=== PATIENT | female | born 1980 | race Caucasian/White ===

== ENCOUNTER 2018-02-11 11:39 | Inpatient (IN) ==
[2018-02-11] MEDS ORDERED: Famotidine 20 MG/2 ML VIAL IVP PRN (12:25)
[2018-02-11] MEDS ORDERED: *HR* Nalbuphine 10 MG/ML AMPUL IVP PRN (12:25)
[2018-02-11] MEDS ORDERED: Ondansetron 4 MG/2 ML VIAL IVP PRN (12:25)
[2018-02-11] MEDS ORDERED: Metoclopramide 10 MG/2 ML VIAL IVP PRN (12:25)
[2018-02-11] MEDS ORDERED: Ringers Solution, Lactated 1,000 ML IVC SCH (12:30)
--- NOTE | 2018-02-11 12:47 | OB/GYN History & Physical ---
Date of Encounter: 02/11/18 Time of Encounter: 12:44 Assessment and Plan (1) 38 weeks gestation of Current visit: Yes Status: Acute (2) Encounter for induction of labor Current visit: Yes Status: Acute (3) hydronephrosis in , antepartum, single gestation Current visit: Yes Status: Acute History of Present Illness Chief complaint: induction HPI: Ms. Hardin is a 37 year old female who presents today for induction of labor at 38 weeks. This patient has been seen by maternal- medicine who concurs delivery at 38 weeks due to right-sided hydronephrosis and baby. Hydronephrosis at upper limits of normal. Patient has had uneventful . She continues to have itching. Bile last 7 drawn multiple visits including by maternal- medicine all labs within normal limits. She denies issues with her breasts. There is no gynecologic infection or discharge. She is having no bleeding. There are no issues with her bowels or bladder. She has allergies to Biaxin, amoxicillin, penicillin, Zithromax, Flexeril and prednisone all resulting in rash. Current medications include vitamins. She has no chronic medical conditions. Surgical history is significant for LEEP procedure and wisdom teeth extraction. She has no history of abnormal Pap smears, STDs or pelvic infections. She has no history of abnormal breast findings. Socially she denies tobacco, alcohol, illicit drug use. Obstetric history significant for 2 term vaginal deliveries, located. Family history significant for heart disease, hypertension , prostate issues and bone cancer. Past Med Surg Social Fam HX - Past Medical History Medical history: no medical history Additional medical history: had baby 10 days ago, breast feeding Psychiatric history: no psych history - Past Surgical History Additional surgical history: wisom teeth - Social History Smoking Status: Never smoker Smokeless Tobacco Status: No Alcohol use: none Drug use: none - Family History Mother Living Status: Hx Family Cancer: Yes (bladder) Obstetrical History - Pregnancies : 3 Para: 2 Livin Medications and Allergies Vitamins 1 tab PO DAILY 09/20/16 [History] 3 Allergy/AdvReac Type Severity Reaction Status Date / Time clarithromycin [From Biaxin] Allergy Diarrhea Verified 02/11/18 12:22 clindamycin Allergy Anaphylaxis Verified 02/11/18 12:22 Cyclobenzaprine Allergy Hives Verified 02/11/18 12:22 [From Flexeril] Penicillins [PCN] Allergy Hives Verified 02/11/18 12:22 fexofenadine [From Ginette-D] AdvReac Shakiness Verified 02/11/18 12:22 ibuprofen AdvReac Nausea Verified 02/11/18 12:22 pseudoephedrine AdvReac Shakiness Verified 02/11/18 12:22 [From Ginette-D] Review of System OB All systems PM: reviewed and no additional remarkable complaints except as stated Exam - Constitutional Constitutional: well developed, well nourished, no acute distress, average body habitus - HEENT HEENT: PERRL - Neck Neck exam: full ROM - Lungs Respiratory exam: CTAB - Cardiovascular Cardiovascular exam: RRR - Abdomen Abdomen: Present: bowel sounds normal, gravid, non tender - Extremities Extremities exam: full ROM, normal inspection - Vagina Vagina: Present: normal moisture - Cervix Dilation: 2 Effacement: 50 Station: -2 - Uterus Uterus exam: Present: normal size Results All other labs normal. - VTE Reasons for not Prescribing Prophylaxis: Treatment not Indicated - Low risk for VTE
[2018-02-11] MEDS ORDERED: Ringers Solution, Lactated 1,000 ML ONE (12:48)
[2018-02-11] MEDS ORDERED: Oxytocin 20 units/ LR 1000 mL 20 UNIT/1,000 ML BAG IVC ONE (12:48)
[2018-02-11 12:56] LABS: Basophils % 0.3 %; Eosinophils # 0.1 K/mcL (0.0-0.6); Eosinophils % 1.1 %; Hematocrit 37.5 % (35.3-44.9); Hemoglobin 12.5 g/dL (11.5-15.4); Immature Granulocytes % 0.8 % (0-4); Lymphocytes # 2.5 K/mcL (0.6-4.6); Lymphocytes % 21.7 %; Mean Corpuscular HGB Conc 33.3 g/dL (31.6-35.5); Mean Corpuscular Volume 93.1 fL (83.0-100.0); Mean Platelet Volume 10.9 fL (9.4-12.4); Monocytes # 0.9 K/mcL (0.0-1.3); Monocytes % 7.8 %; Neutrophils # 7.9 K/mcL (1.6-8.9); Platelet Count 259 K/mcL (140-400); Red Blood Count 4.03 M/mcL (3.82-4.97); Red Cell Distribution Width 12.7 % (11.5-14.5); Segmented Neutrophils % 68.3 %
[2018-02-11] MEDS ORDERED: Oxytocin 20 units/ LR 1000 mL 20 UNIT/1,000 ML BAG IVC SCH ×2 (13:00→22:39)
[2018-02-11 13:20] LABS: Amphetamine Screen,Urine Negative ng/mL (Cutoff=1000); Barbiturate Screen,Urine Negative ng/mL (Cutoff=200); Benzodiazepines Screen,Urine Negative ng/mL (Cutoff=200); Cannabinoid Screen,Urine Negative ng/mL (Cutoff = 50); Cocaine Screen,Urine Negative ng/mL (Cutoff= 300); Opiate Screen,Urine Negative ng/mL (Cutoff=300); Phencyclidine Screen,Urine Negative ng/mL (Cutoff=25)
--- NOTE | 2018-02-11 14:49 | Anesthesia Evaluation PreOp ---
Date of Encounter: 02/11/18 Time of Encounter: 13:05 - Past History Planned Operation: labor epidural Cardiac History: Denies any Significant Hx Pulmonary History: Denies Any Significant HX PULLEY WORKER History: Denies Any Significant HX Other Medical History: Denies Any Significant HX Anesthesia History: No Prior Anesthetic Complications, Past Anesthesia (wisdom teeth extracted without problems. Previous epidural X2 without problems. No FHAP.) : Yes Alcohol Use: none Drug use: none Medications and Allergies Vitamins 1 tab PO DAILY 09/20/16 [History] 3 Allergy/AdvReac Type Severity Reaction Status Date / Time clarithromycin [From Biaxin] Allergy Diarrhea Verified 02/11/18 12:22 clindamycin Allergy Anaphylaxis Verified 02/11/18 12:22 Cyclobenzaprine Allergy Hives Verified 02/11/18 12:22 [From Flexeril] Penicillins [PCN] Allergy Hives Verified 02/11/18 12:22 fexofenadine [From Ginette-D] AdvReac Shakiness Verified 02/11/18 12:22 ibuprofen AdvReac Nausea Verified 02/11/18 12:22 pseudoephedrine AdvReac Shakiness Verified 02/11/18 12:22 [From Ginette-D] - Meds/Allergy Pre-op Review Medications Reviewed: Yes Allergies Reviewed: Yes Beta Blockers on Current Med List: No Anesthesia Results - Labs 02/11/18 12:36 Anesthesia Exam 118/68, 87, 16. FHTs 150s. Height: 5'5" Weight: 75kg NPO (# of Hours): 2 Pain Scale: 0 Pain Scale Used: Numeric (1 - 10) - HEENT Pupil (Motor): Pupils equal Mallampati: II Teeth: Normal Oral Opening: Greater than 3 - PULLEY WORKER LOC: Oriented PULLEY WORKER Motor: Normal RUE, Normal LUE, Normal RLE, Normal LLE, Normal Face PULLEY WORKER Sensory: Normal: RUE, LUE, RLE, LLE, Face - Cardiac Rhythm: Regular - Pulmonary Breath Sounds: bilateral Clear Respiratory Effort: Symmetrical Anesthesia Assess/Plan ASA Score: 2 Modified [place] Scale for Level of Consciousness: Cooperative, oriented, and tranquil Anesthetic Plan: Regional Monitoring Plan: Standard Monitors
[2018-02-11] MEDS ORDERED: Lidocaine -MPF 2% 5 ML VIAL ONE (16:01)
[2018-02-11] MEDS ORDERED: *HR* FentaNYL (PF) 100 MCG/2 ML VIAL ONE (16:01)
[2018-02-11] MEDS ORDERED: Bupivacaine-MPF 0.25% 10 ML VIAL ONE (16:01)
[2018-02-11] MEDS ORDERED: Epidural Premix (fent/bupiv) 110 ML EP ONE (16:02)
[2018-02-11] MEDS ORDERED: Water for inj. (sterile) 10 ML IV ONE (16:54)
[2018-02-11] MEDS ORDERED: EPHEDrine 50 MG/ML VIAL ONE (16:54)
[2018-02-11] MEDS ORDERED: *HR* FentaNYL (PF) 100 MCG/2 ML VIAL EP ONE (17:11)
[2018-02-11] MEDS ORDERED: Bupivacaine-MPF 0.25% 10 ML VIAL EP ONE (17:11)
[2018-02-11] MEDS ORDERED: Epidural Premix (fent/bupiv) 110 ML EP SCH (17:15)
--- NOTE | 2018-02-11 17:31 | OB/GYN Progress Note ---
Date of Encounter: 02/11/18 Time of Encounter: 17:28 - Assessment and Plan (1) 38 weeks gestation of Current Visit: Yes Status: Acute (2) Encounter for induction of labor Current Visit: Yes Status: Acute (3) hydronephrosis in , antepartum, single gestation Current Visit: Yes Status: Acute Continue expectant management 38 week intrauterine . hydronephrosis of . Baltazar out. Artificial rupture membranes was performed with clear fluid returned. Continue Pitocin. Subjective - Subjective Principal diagnosis: labor eval Interval history: 37-year-old female scheduled for induction of labor at 38 weeks per maternal medicine. Patient had 60 mL Baltazar catheter placed at 1250. Baltazar came out after 2 hours. Patient has been laboring on Pitocin. Sterile vaginal exam was 5 cm 50% effaced and -1 station. Artificial rupture membranes was performed with clear fluid being noted. heart rate in the 150s with accelerations, category 1 tracing. Antepartum ROS: movement normal Objective - Vital Signs Vital Signs: Intake and Output 02/11/18 02/11/18 02/11/18 07:59 15:59 23:59 Other: Weight 75.5 kg Patient Weight 02/11/18 23:59 Weight 75.5 kg - Exam FHR: category 1 Abdomen: Present: normal appearance, soft, gravid Uterus: Present: normal Cervical dilation: 4-5 Cervix effacement: 50% station: -1 - Labs Labs: Abnormal lab results WBC 11.5 K/mcL (4.3-11.1) H 02/11/18 12:36
[2018-02-11] MEDS ORDERED: Famotidine 20 MG/2 ML VIAL IVP ONE (18:22)
--- NOTE | 2018-02-11 19:01 | Anesthesia Procedures ---
Date of Encounter: 02/11/18 Time of Encounter: 16:03 Procedures: Anesthesia - Epidural/Spinal Patient ID/Chart reviewed: Yes Patient examined: Yes OB Eval: Gestational age: 39 OB Eval: : 3 OB Eval: Hx Para: 2 OB Eval: Dilated at (cm): 5 OB Eval: Contractions: Non-stressed pattern Consent Obtained: Yes Supplemental Oxygen: None/Room Air Site Prep: Aseptic Technique, Sterile prep and drape, Povidone-Iodine 1% Patient position: upright Local Anesthetic: Lidocaine 1% Amount of Local Anesthetic used: 3 Touhy Needle Gauge: 18 Touhy Needle Depth (cm): 6 Catheter Depth at Skin (cm): 15 Test Dose (1.5% Lido + Epi): Volume given (mls): 3 Test Dose Result: Negative Loading Dose: 0.25% Marcaine (mls): 8 Loading Dose: Fentanyl (mcg): 100 Loading Dose Administered: Thru Catheter Infusion Med: 0.125% Bupivacaine w/ 2 mcg/ml Fentanyl Infusion Rate (mls/hr): [address]: Tegaderm, Tape Interspace Used: L3-L4 Loss of Resistance (CONNOR): Yes Blood: No CSF: No Paresthesia: No Vitals + FHT's: 3 Vital Signs Time 1603 1621 1625 1630 1635 BP 114/63 138/66 107/67 113/57 117/77 Pulse 70 68 85 82 89 FHTs 130 130 130 130 130
--- NOTE | 2018-02-11 19:04 | Anesthesia Progress Note ---
Date of Encounter: 02/11/18 Time of Encounter: 16:45 Anesthesia Note - Note Note: 02/11/18 19:02 called to LDR9 for hypotension after epidural placement. BP 81/43. HR 77. FHTs 130s and 140s. Gave phenylephrine 50mcg X3 doses with BP increasing to 98/54. Gave ephedrine 10mg with BP increasing to 117/64. FHTs remained 130s and 140s.
--- NOTE | 2018-02-11 20:18 | OB/GYN Procedure Note ---
Delivery - Delivery Date: 02/11/18 Provider: Hermes Simon Intrapartum events: none Delivery induction: oxytocin, dumont Delivery augmentation: rupture of membranes Delivery monitor: external FHT, external uterine Anesthesia: epidural Quantitated Blood Loss: 100 - Infant (s) Infant A Delivery Date: 02/11/18 Delivery Time: 20:05 Presentation: vertex Position: OA Route of delivery: Gender: Male Viability: Viable Pounds: 6 Ounces: 3 Weight Gram: 2.805 kg at 1 minute: 9 at 5 mins: 9 Shoulder Dystocia: not encountered Specimens collected: cord blood Placenta: spontaneous - Repair Episiotomy: none Laceration Description: None - Complications Delivery complications: none - Disposition Mom disposition: stable in LDR disposition: stable in LDR - Comments Comments: Patient progressed to complete and pushing rapidly. She had a spontaneous vaginal delivery of a male over an intact perineum. This ends the perineum with 2 pushes. The rest the was then delivered with 1 push. Infant cried immediately upon delivery. Cord was cut to cut after 60 seconds. The was in past nurse in attendance. Cord bloods obtained. Placenta was then delivered spontaneously and intact. There are no cervical, vaginal, periurethral or perineal lacerations noted. Patient ordered a male infant with Apgars 9 at 1 minute 9 at 5 minutes weight is pending as mother is skin to skin.
[2018-02-11] MEDS ORDERED: Ibuprofen 600 MG TABLET PO PRN (22:39)
[2018-02-11] MEDS ORDERED: Acetaminophen 325 MG TABLET PO PRN (22:39)
[2018-02-11] MEDS ORDERED: Measles/Mumps/Rubella Vacc 0.5 ML VIAL SQ PRN (22:39)
[2018-02-12 02:20] LABS: Basophils % 0.2 %; Eosinophils # 0.2 K/mcL (0.0-0.6); Eosinophils % 0.9 %; Hematocrit 31.6 % (35.3-44.9); Immature Granulocytes % 0.6 % (0-4); Lymphocytes # 2.3 K/mcL (0.6-4.6); Lymphocytes % 13.2 %; Mean Corpuscular HGB Conc 34.2 g/dL (31.6-35.5); Mean Corpuscular Volume 90.8 fL (83.0-100.0); Mean Platelet Volume 10.6 fL (9.4-12.4); Monocytes # 1.5 K/mcL (0.0-1.3); Monocytes % 8.8 %; Platelet Count 193 K/mcL (140-400); Red Blood Count 3.48 M/mcL (3.82-4.97); Red Cell Distribution Width 12.6 % (11.5-14.5); Segmented Neutrophils % 76.3 %
[2018-02-12 02:25] LABS: Hemoglobin 10.8 g/dL (11.5-15.4)
--- NOTE | 2018-02-12 08:34 | OB/GYN Progress Note ---
Date of Encounter: 02/12/18 Time of Encounter: 08:34 - Assessment and Plan (1) Vaginal delivery Current Visit: Yes Status: Acute Continue current management plan. Anticipate discharge tomorrow. Subjective - Subjective Principal diagnosis: Vaginal delivery Interval history: Patient states she is doing well. Reports no bowel movement, but states she has passed gas. Reports that she is urinating well. Denies any headache, fever , blurry vision, lower extremity swelling. Patient reports: appetite normal, voiding normally, pain well controlled, no nauseated [place]: doing well Objective - Latest Vital Signs Latest vital signs: Vital Signs Temp Pulse Resp BP Pulse Ox 02/12/18 07:15 98.4 F 71 14 99/56 96 02/12/18 01:10 98.0 F 85 16 109/67 96 02/12/18 00:00 98.3 F 78 16 115/65 97 02/11/18 23:00 98.4 F 65 14 110/68 99 Intake and Output 02/11/18 02/12/18 02/12/18 23:59 07:59 15:59 Intake Total 500 / 500 Output Total 850 / 850 Balance -350 / -350 Intake: Oral 500 / 500 Output: Urine 850 / 850 Other: Weight 76.8 kg - Exam Lungs: bilateral: normal Chest: Normal S1, Normal S2 Extremities: Present: normal. Absent: edema Abdomen: Present: normal appearance, soft. Absent: distention Uterus: Present: normal Uterus Position: 1 Finger Below Umbilicus - Labs Labs: Laboratory Results - last 24 hr 02/11/18 02/11/18 02/12/18 12:36 12:36 01:52 WBC 11.5 H 17.0 H RBC 4.03 3.48 L Hgb 12.5 10.8 L D Hct 37.5 31.6 L MCV 93.1 90.8 MCH 31.0 31.0 MCHC 33.3 34.2 RDW 12.7 12.6 Plt Count 259 193 MPV 10.9 10.6 Immature Gran % 0.8 0.6 Seg Neutrophils % 68.3 76.3 Lymphocytes % 21.7 13.2 Monocytes % 7.8 8.8 Eosinophils % 1.1 0.9 Basophils % 0.3 0.2 Neutrophils # 7.9 13.0 H Lymphocytes # 2.5 2.3 Monocytes # 0.9 1.5 H Eosinophils # 0.1 0.2 Basophils # 0.0 0.0 Urine Opiates Screen Negative Ur Barbiturates Screen Negative Ur Phencyclidine Scrn Negative Ur Amphetamines Screen Negative U Benzodiazepines Scrn Negative Urine Cocaine Screen Negative U Marijuana (THC) Screen Negative Ur Drug Screen Interp See Below
[2018-02-12] MEDS ORDERED: Prenatal Vit/FA 1 EACH TABLET PO SCH (09:00)
--- NOTE | 2018-02-12 13:21 | Discharge Summary ---
Date of Encounter: 02/12/18 Time of Encounter: 13:38 - Discharge Diagnosis (1) Vaginal delivery Priority: Primary Status: Acute Comments: Patient states she is doing well. Reports no bowel movement, but states she has passed gas. Reports that she is urinating well. Denies any headache, fever , blurry vision, lower extremity swelling. - Discharge Medications Home Medications: Acetaminophen [Tylenol] 650 mg PO Q6HR PRN tablet 02/12/18 [Rx] Docusate [Colace] 100 mg PO BID capsule 02/12/18 [Rx] Allergies/Adverse Reactions: 3 Allergy/AdvReac Type Severity Reaction Status Date / Time clarithromycin [From Biaxin] Allergy Diarrhea Verified 02/11/18 12:22 clindamycin Allergy Anaphylaxis Verified 02/11/18 12:22 Cyclobenzaprine Allergy Hives Verified 02/11/18 12:22 [From Flexeril] Penicillins [PCN] Allergy Hives Verified 02/11/18 12:22 fexofenadine [From Ginette-D] AdvReac Shakiness Verified 02/11/18 12:22 ibuprofen AdvReac Nausea Verified 02/11/18 12:22 pseudoephedrine AdvReac Shakiness Verified 02/11/18 12:22 [From Ginette-D] Data Procedures and tests throughout hospitalization: Laboratory Tests 02/11/18 02/11/18 02/12/18 12:36 12:36 01:52 WBC 11.5 H 17.0 H RBC 4.03 3.48 L Hgb 12.5 10.8 L D Hct 37.5 31.6 L MCV 93.1 90.8 MCH 31.0 31.0 MCHC 33.3 34.2 RDW 12.7 12.6 Plt Count 259 193 MPV 10.9 10.6 Immature Gran % 0.8 0.6 Seg Neutrophils % 68.3 76.3 Lymphocytes % 21.7 13.2 Monocytes % 7.8 8.8 Eosinophils % 1.1 0.9 Basophils % 0.3 0.2 Neutrophils # 7.9 13.0 H Lymphocytes # 2.5 2.3 Monocytes # 0.9 1.5 H Eosinophils # 0.1 0.2 Basophils # 0.0 0.0 Urine Opiates Screen Negative Ur Barbiturates Screen Negative Ur Phencyclidine Scrn Negative Ur Amphetamines Screen Negative U Benzodiazepines Scrn Negative Urine Cocaine Screen Negative U Marijuana (THC) Screen Negative Ur Drug Screen Interp See Below Labs on day of discharge: Labs from last 24 hours 02/12/18 01:52 WBC 17.0 H RBC 3.48 L Hgb 10.8 L D Hct 31.6 L MCV 90.8 MCH 31.0 MCHC 34.2 RDW 12.6 Plt Count 193 MPV 10.6 Immature Gran % 0.6 Seg Neutrophils % 76.3 Lymphocytes % 13.2 Monocytes % 8.8 Eosinophils % 0.9 Basophils % 0.2 Neutrophils # 13.0 H Lymphocytes # 2.3 Monocytes # 1.5 H Eosinophils # 0.2 Basophils # 0.0 Date of admission: 02/11/18 11:39 Primary care physician: Steffi Kenyon CNP Consults: 02/11/18 22:39 Consult to Wagon Drill Operator [CONS] Routine Comment: Vaginal delivery, consult needed Discharging clinician: Reshma Holland Anticipated date of discharge: 02/12/18 - Patient Status Disposition: Home, Self-Care Condition: Good Overall status at discharge: patient is back to baseline - Discharge Instructions Follow Up With: Steffi Kenyon CNP [Primary Care Provider] - Hermes Simon MD [Partnered Physician] - - Diet and Activity Activity: resume usual activities as tolerated Diet: regular diet Hospital Course Episiotomy: none Time Attestation: Total time spent providing and/or coordinating discharge services: Exam - Constitutional Vitals: Temp Pulse Resp BP Pulse Ox 98.4 F 71 14 99/56 96 02/12/18 07:15 02/12/18 07:15 02/12/18 07:15 02/12/18 07:15 02/12/18 07:15
--- NOTE | 2018-02-12 13:25 | Discharge Summary ---
Date of Encounter: 02/12/18 Time of Encounter: 13:23 - Discharge Diagnosis (1) Vaginal delivery Priority: Primary Status: Acute Comments: Patient states bleeding minimal, pain will managed on by mouth pain medications , breast-feeding infant and desires discharge - Discharge Medications Home Medications: Acetaminophen [Tylenol] 650 mg PO Q6HR PRN tablet 02/12/18 [Rx] Docusate [Colace] 100 mg PO BID capsule 02/12/18 [Rx] Allergies/Adverse Reactions: 3 Allergy/AdvReac Type Severity Reaction Status Date / Time clarithromycin [From Biaxin] Allergy Diarrhea Verified 02/11/18 12:22 clindamycin Allergy Anaphylaxis Verified 02/11/18 12:22 Cyclobenzaprine Allergy Hives Verified 02/11/18 12:22 [From Flexeril] Penicillins [PCN] Allergy Hives Verified 02/11/18 12:22 fexofenadine [From Ginette-D] AdvReac Shakiness Verified 02/11/18 12:22 ibuprofen AdvReac Nausea Verified 02/11/18 12:22 pseudoephedrine AdvReac Shakiness Verified 02/11/18 12:22 [From Ginette-D] Data Procedures and tests throughout hospitalization: Laboratory Tests 02/11/18 02/11/18 02/12/18 12:36 12:36 01:52 WBC 11.5 H 17.0 H RBC 4.03 3.48 L Hgb 12.5 10.8 L D Hct 37.5 31.6 L MCV 93.1 90.8 MCH 31.0 31.0 MCHC 33.3 34.2 RDW 12.7 12.6 Plt Count 259 193 MPV 10.9 10.6 Immature Gran % 0.8 0.6 Seg Neutrophils % 68.3 76.3 Lymphocytes % 21.7 13.2 Monocytes % 7.8 8.8 Eosinophils % 1.1 0.9 Basophils % 0.3 0.2 Neutrophils # 7.9 13.0 H Lymphocytes # 2.5 2.3 Monocytes # 0.9 1.5 H Eosinophils # 0.1 0.2 Basophils # 0.0 0.0 Urine Opiates Screen Negative Ur Barbiturates Screen Negative Ur Phencyclidine Scrn Negative Ur Amphetamines Screen Negative U Benzodiazepines Scrn Negative Urine Cocaine Screen Negative U Marijuana (THC) Screen Negative Ur Drug Screen Interp See Below Labs on day of discharge: Labs from last 24 hours 02/12/18 01:52 WBC 17.0 H RBC 3.48 L Hgb 10.8 L D Hct 31.6 L MCV 90.8 MCH 31.0 MCHC 34.2 RDW 12.6 Plt Count 193 MPV 10.6 Immature Gran % 0.6 Seg Neutrophils % 76.3 Lymphocytes % 13.2 Monocytes % 8.8 Eosinophils % 0.9 Basophils % 0.2 Neutrophils # 13.0 H Lymphocytes # 2.3 Monocytes # 1.5 H Eosinophils # 0.2 Basophils # 0.0 Date of admission: 02/11/18 11:39 Primary care physician: Steffi Kenyon CNP Consults: 02/11/18 22:39 Consult to [place] Architect [CONS] Routine Comment: Vaginal delivery, consult needed Discharging clinician: Reshma Holland Anticipated date of discharge: 02/12/18 - Patient Status Disposition: Home, Self-Care Condition: Good Functional capacity at discharge: independent ambulation Overall status at discharge: patient is back to baseline - Discharge Instructions Follow Up With: Steffi Kenyon CNP [Primary Care Provider] - Hermes Simon MD [Partnered Physician] - - Diet and Activity Activity: resume usual activities as tolerated Diet: regular diet Hospital Course Reason for admission: IUP at term Delivery: Episiotomy: none Laceration: none Other procedures: none complications: none Discharge diagnosis: IUP at term delivered [place] baby: male Hospital course: [facility] - Delivery Date: 02/11/18 Provider: Hermes Simon Intrapartum events: none Delivery induction: oxytocin, dumont Delivery augmentation: rupture of membranes Delivery monitor: external FHT, external uterine Anesthesia: epidural Quantitated Blood Loss: 100 - Infant (s) Infant A Delivery Date: 02/11/18 Delivery Time: 20:05 Presentation: vertex Position: OA Route of delivery: Gender: Male Viability: Viable Pounds: 6 Ounces: 3 Weight Gram: 2.805 kg at 1 minute: 9 at 5 mins: 9 Shoulder Dystocia: not encountered Specimens collected: cord blood Placenta: spontaneous - Repair Episiotomy: none Laceration Description: None - Complications Delivery complications: none - Disposition Mom disposition: stable in PP and appropriate for discharge, Time Attestation: Total time spent providing and/or coordinating discharge services: Time Spent: Less than 30 minutes Exam - Constitutional Vitals: Temp Pulse Resp BP Pulse Ox 98.4 F 71 14 99/56 96 02/12/18 07:15 02/12/18 07:15 02/12/18 07:15 02/12/18 07:15 02/12/18 07:15 General appearance IM: A&O X 3 - Respiratory Respiratory exam: Present: CTAB - Cardiovascular Cardiovascular exam IM: Present: RRR - GI/Abdominal GI/Abdominal exam IM: soft - Uterine Tone: Firm Uterus Position: 1 Finger Below Umbilicus - Extremities Exam Extremities exam IM: Present: normal capillary refill, normal inspection - Neurological Exam Neurological exam: normal gait, oriented X3 - Psychiatric Additional comments: reports good mood
[2018-02-12 15:35] VITALS: BP 120/72
== END 2018-02-12 22:30 | disposition home or self-care (01) | DRG 775 ==
LOC: 1NENULAB 11:39 → 1NENUOBS 23:07
PROVIDERS: ADMIT Obstetrics & Gynecology; ATTEND Obstetrics & Gynecology

== ENCOUNTER 2018-02-14 20:16 | Observation (INO) ==
--- NOTE | 2018-02-14 20:51 | Emergency Department Note ---
Disposition Clinical Impression: Acute endometritis Disposition: Admitted As Inpatient Condition: Good Referrals: Steffi Kenyon CNP [Primary Care Provider] - Forms: ED Satisfaction Letter Time of Disposition: 23:23 General Adult HPI - General Chief complaint: ED Fever Stated complaint: Fever s/p childbirth 3 days ago Time Seen by Provider: 02/14/18 20:25 Nursing Notes Reviewed: Yes Vital Signs Reviewed: Yes - History of Present Illness HPI Narrative: 3 S/p vaginal of a 6lb 3 oz baby boy. . No complications with the delivery. She was induced secondary to cholestasis. The baby had a dilated kidney as well and phyllis a nonstress test. She was doing well until she began to have left lower quadrant pain. Took a nap and woke up with a 101.7 fever. She took some tylenol and came to the ED. The tylenol did reduce the fever, but did not help the pain. Dr Hall is her OB. DId not have any complications post delivery of her previous babies. Pain Scale: 8 - Related Data Previous Rx's Medication Instructions Recorded Acetaminophen [Tylenol] 650 mg PO Q6HR PRN tablet 02/12/18 Docusate [Colace] 100 mg PO BID capsule 02/12/18 Allergies Allergy/AdvReac Type Severity Reaction Status Date / Time clarithromycin [From Biaxin] Allergy Diarrhea Verified 02/11/18 12:22 clindamycin Allergy Anaphylaxis Verified 02/11/18 12:22 Cyclobenzaprine Allergy Hives Verified 02/11/18 12:22 [From Flexeril] Penicillins [PCN] Allergy Hives Verified 02/11/18 12:22 fexofenadine [From Ginette-D] AdvReac Shakiness Verified 02/11/18 12:22 ibuprofen AdvReac Nausea Verified 02/11/18 12:22 pseudoephedrine AdvReac Shakiness Verified 02/11/18 12:22 [From Ginette-D] All systems ED: reviewed and negative except as stated. Review of Systems: As Per HPI Constitutional: Reports: fever, chills ENT ED: Denies: congestion Cardiovascular: Denies: chest pain, palpitations, syncope Respiratory: Denies: cough, dyspnea Gastrointestinal: Reports: abdominal pain, nausea. Denies: vomiting, diarrhea, hematemesis, melena, hematochezia Genitourinary: Reports: discharge (consistence with delivery, no foul odor). Denies: urgency, dysuria, frequency Musculoskeletal: Reports: back pain (from epidural), neck pain (chronic) Integumentary: Denies: rash Neurological: Denies: headache Past Medical History - Past Medical History Attestation: Yes The following information was validated with the patient. Source: patient Medical history: Reports: no medical history Psychiatric history: Reports: no psych history - Social History Smoking Status: Never smoker Smokeless Tobacco Status: No Alcohol use: Reports: none Drug use: Reports: none Physical Exam - General Limitations: no limitations General appearance: alert, in no apparent distress - Head Head exam: atraumatic, normocephalic, normal inspection - Eye Eye exam: Present: normal appearance, PERRL, EOMI - ENT ENT exam: normal exam, normal oropharynx, mucous membranes moist - Neck Neck exam: Present: normal inspection, full ROM, trachea midline - Chest Chest inspection: Present: normal inspection, symmetric chest wall rise - Respiratory Respiratory exam: Present: normal lung sounds bilaterally. Absent: respiratory distress, accessory muscle use - Cardiovascular Cardiovascular exam: Present: regular rate, normal rhythm, normal heart sounds - Abdominal Exam Abdominal exam: Present: soft, tenderness (lower quadrants ), other (palpable firn uterus just below the umbilicus). Absent: distention, rigidity - Extremities Exam Extremities exam: Present: normal inspection, full ROM, normal capillary refill. Absent: tenderness, pedal edema - Back Exam Back exam: Present: normal inspection, full ROM. Absent: tenderness - Neurological Exam Neurological exam: Present: alert, oriented X3 - Psychiatric Psychiatric exam: Present: normal affect, normal mood - Skin Skin exam: Present: warm, dry, intact, normal color. Absent: rash, cyanosis, diaphoresis Course Course Narrative: The patient does have exquisite tenderness to four-quadrant palpation as well as minimal palpation to her uterus. She does have a firm wrist that is distended up to gently under her umbilicus. Patient is not febrile here but did take antipyretics prior to arrival here. Does have a mildly elevated white blood cell count. We did get a ultrasound of her uterus. Normal blood flow to the Dopplers as noted. There are no products of conception noted in her endometrium however there was some fluid collection. We have started her on empiric antibiotics at this time. Dr. Horowitz did except for admission. Patient is agreeable with this. - Consultations Consultation #1: I spoke with Dr. Merchant. He understood my concern for possible endometritis or other suspect. He does not believe that this is retained products is patient does not have an increase in bleeding. He is agreeable with the plan to start antibiotics and get a transabdominal Doppler ultrasound. He expressed a concern for possible torsion versus abscess as well. Time: 21:43 Consultation #2: I spoke with the Print Binding And Finishing Worker Gabby Herman. She will speak to Dr Horowitz and get back to us. Time: 22:28 Consultation #3: Dr Horowitz accepted Pt in stable condition. Time: 23:19 Vital Signs Temperature 99.2 F 02/14/18 20:26 Pulse Rate 86 02/14/18 20:26 Respiratory Rate 16 02/14/18 20:26 Blood Pressure 140/71 02/14/18 20:26 O2 Sat by Pulse Oximetry 98 02/14/18 20:26 Temperature 99.2 F 02/14/18 21:31 Pulse Rate 85 02/14/18 23:15 Respiratory Rate 16 02/14/18 23:15 Blood Pressure 117/74 02/14/18 23:15 O2 Sat by Pulse Oximetry 96 02/14/18 23:15 Oxygen Delivery Oxygen Delivery Room Air Medical Decision Making - Medical Records Medical records reviewed: Yes I reviewed the patient's medical records. - Lab Data Lab results reviewed: Yes I reviewed the patient's lab results. Result diagrams: 02/14/18 21:16 02/14/18 21:16 Lab Results 02/14/18 02/14/18 02/14/18 Range/Units 21:16 21:16 22:22 WBC 13.4 H (4.3-11.1) K/mcL RBC 3.74 L (3.82-4.97) M/mcL Hgb 11.9 (11.5-15.4) g/dL Hct 35.0 L (35.3-44.9) % MCV 93.6 (83.0-100.0) fL MCH 31.8 (28.0-33.3) pg MCHC 34.0 (31.6-35.5) g/dL RDW 13.0 (11.5-14.5) % Plt Count 204 (140-400) K/mcL MPV 10.5 (9.4-12.4) fL Immature Gran % 0.9 (0-4) % Seg Neutrophils % 69.2 % Lymphocytes % 16.3 % Monocytes % 11.3 % Eosinophils % 1.9 % Basophils % 0.4 % Neutrophils # 9.2 H (1.6-8.9) K/mcL Lymphocytes # 2.2 (0.6-4.6) K/mcL Monocytes # 1.5 H (0.0-1.3) K/mcL Eosinophils # 0.3 (0.0-0.6) K/mcL Basophils # 0.1 (0.0-0.2) K/mcL Sodium 134 L (136-145) mEq/L Potassium 3.9 (3.5-5.1) mEq/L Chloride 105 (98-107) mEq/L Carbon Dioxide 22 L (23-29) mEq/L BUN 9 (6-20) mg/dL Creatinine 0.56 L (0.60-1.20) mg/dL Est GFR ( Amer) > 60 (> 60) Est GFR (Non-Af Amer) > 60 (> 60) BUN/Creatinine Ratio 16 (6-26) Glucose 93 (70-105) mg/dL Calculated Osmolality 276 L (280-300) Calcium 9.0 (8.6-10.3) mg/dL Total Bilirubin 0.3 (0.3-1.0) mg/dL AST 20 (13-39) Units/L ALT 13 (7-52) Units/L Alkaline Phosphatase 73 (34-104) Units/L Serum Total Protein 5.9 L (6.4-8.9) g/dL Albumin 3.1 L (3.5-5.7) g/dL Globulin 2.8 (2.4-3.5) g/dL Albumin/Globulin Ratio 1.1 (1.1-2.2) Urine Color Yellow (Yellow) Urine Clarity Cloudy A (Clear) Urine pH 7.0 (5.0-8.0) pH Units Ur Specific [place] 1.013 (1.010-1.025) Urine Protein 30 H (Neg-Trace) mg/dL Urine Glucose (UA) Normal (Normal) mg/dL Urine Ketones Negative (Negative) mg/dL Urine Blood Large H (Negative) Urine Nitrite Negative (Negative) Urine Bilirubin Negative (Negative) Urine Urobilinogen Normal (Normal) mg/dL Ur Leukocyte Esterase Large H (Negative) Urine Microscopic RBC 15-30 H (0-3) per hpf Urine Microscopic WBC TNTC H (0-3) per hpf Ur Squamous Epith Cells Many H (None-Few) per lpf Urine Bacteria Moderate H (None-Few) per hpf Hyaline Casts None Seen (None-Few) per lpf Ur Culture Indicated? NO. A (NO) - Radiology Data Radiology results reviewed: Yes I reviewed the patient's radiology results. Pelvis Ultrasound 02/14/18 21:30 IMPRESSION: Fluid within the endometrial canal. Suspected fibroids or adenomyosis of the uterus. Normal Doppler flow within the ovaries. D/ / Xiomara Lovett Cha, MD / Xiomara Lovett Cha, MD Interpreting Provider: Xiomara Lovett Cha, MD
[2018-02-14] MEDS ORDERED: cefOXitin 2,000 MG in Water for inj. (sterile) 20 ML 20 ML IVP STA (21:42)
[2018-02-14 21:46] LABS: Basophils # 0.1 K/mcL (0.0-0.2); Basophils % 0.4 %; Eosinophils # 0.3 K/mcL (0.0-0.6); Eosinophils % 1.9 %; Hemoglobin 11.9 g/dL (11.5-15.4); Immature Granulocytes % 0.9 % (0-4); Lymphocytes # 2.2 K/mcL (0.6-4.6); Lymphocytes % 16.3 %; Mean Corpuscular Hemoglobin 31.8 pg (28.0-33.3); Mean Corpuscular Volume 93.6 fL (83.0-100.0); Mean Platelet Volume 10.5 fL (9.4-12.4); Monocytes # 1.5 K/mcL (0.0-1.3); Monocytes % 11.3 %; Neutrophils # 9.2 K/mcL (1.6-8.9); Platelet Count 204 K/mcL (140-400); Red Blood Count 3.74 M/mcL (3.82-4.97); Segmented Neutrophils % 69.2 %
--- NOTE | 2018-02-14 21:46 | Emergency Department Note ---
Disposition Clinical Impression: Acute endometritis Disposition: Still a Patient Referrals: Steffi Kenyon CNP [Primary Care Provider] - Forms: ED Satisfaction Letter General Adult HPI - General Chief complaint: ED Abdominal Pain Stated complaint: fever/abd pain Time Seen by Provider: 02/14/18 20:25 Limitations: no limitations - History of Present Illness HPI Narrative: Attestation note I examined this patient and my medical decision-making was reviewed with the Resident Physician/STAFFING COORDINATOR/PA. I agree with the documented findings, disposition and treatment plan as described except to the extent set forth below Patient seen with emergency medicine resident Darlyn Gomez, please see copy of his note for details of this patient encounter Briefly: 37-year-old female 72 hours for vaginal delivery at [facility]. Her OB is Dr. Merchant we consult at. Patient comes in with exquisite suprapubic abdominal pain nausea vomiting and fever up to 103. Patient's presentation is very suggestive for acute endometritis. Patient will get IV fluids IV antibiotics screening labs and a pelvic Doppler ultrasound. With admission highly anticipated. Providing 30 minutes critical care service for this patient. Admission disposition and workup pending Pain Scale: 8 - Related Data Previous Rx's Medication Instructions Recorded Acetaminophen [Tylenol] 650 mg PO Q6HR PRN tablet 02/12/18 Docusate [Colace] 100 mg PO BID capsule 02/12/18 Allergies Allergy/AdvReac Type Severity Reaction Status Date / Time clarithromycin [From Biaxin] Allergy Diarrhea Verified 02/11/18 12:22 clindamycin Allergy Anaphylaxis Verified 02/11/18 12:22 Cyclobenzaprine Allergy Hives Verified 02/11/18 12:22 [From Flexeril] Penicillins [PCN] Allergy Hives Verified 02/11/18 12:22 fexofenadine [From Ginette-D] AdvReac Shakiness Verified 02/11/18 12:22 ibuprofen AdvReac Nausea Verified 02/11/18 12:22 pseudoephedrine AdvReac Shakiness Verified 02/11/18 12:22 [From Ginette-D] Constitutional: Reports: fever, chills ENT ED: Denies: congestion Cardiovascular: Denies: chest pain, palpitations, syncope Respiratory: Denies: cough, dyspnea Gastrointestinal: Reports: abdominal pain, nausea. Denies: vomiting, diarrhea, hematemesis, melena, hematochezia Genitourinary: Reports: discharge (consistence with delivery, no foul odor). Denies: urgency, dysuria, frequency Musculoskeletal: Reports: back pain (from epidural), neck pain (chronic) Integumentary: Denies: rash Neurological: Denies: headache Past Medical History - Past Medical History Medical history: Reports: no medical history Psychiatric history: Reports: no psych history - Social History Smoking Status: Never smoker Smokeless Tobacco Status: No Alcohol use: Reports: none Drug use: Reports: none Physical Exam - General Limitations: no limitations General appearance: alert, in no apparent distress Course Vital Signs Temperature 99.2 F 02/14/18 20:26 Pulse Rate 86 02/14/18 20:26 Respiratory Rate 16 02/14/18 20:26 Blood Pressure 140/71 02/14/18 20:26 O2 Sat by Pulse Oximetry 98 02/14/18 20:26 Temperature 99.2 F 02/14/18 21:31 Pulse Rate 75 02/14/18 21:31 Respiratory Rate 22 02/14/18 21:31 Blood Pressure 109/65 02/14/18 21:31 O2 Sat by Pulse Oximetry 100 02/14/18 21:31 Oxygen Delivery Oxygen Delivery Room Air
[2018-02-14 22:04] LABS: Alanine Aminotransferase 13 Units/L (7-52); Albumin 3.1 g/dL (3.5-5.7); Albumin/Globulin Ratio 1.1 (1.1-2.2); Alkaline Phosphatase 73 Units/L (34-104); Aspartate Amino Transferase 20 Units/L (13-39); BUN/Creatinine Ratio 16 (6-26); Bilirubin,Total 0.3 mg/dL (0.3-1.0); Blood Urea Nitrogen 9 mg/dL (6-20); Carbon Dioxide 22 mEq/L (23-29); Chloride 105 mEq/L (98-107); Globulin 2.8 g/dL (2.4-3.5); Glucose 93 mg/dL (70-105); Osmolality,Calculated 276 (280-300); Potassium 3.9 mEq/L (3.5-5.1); Sodium 134 mEq/L (136-145); Total Protein 5.9 g/dL (6.4-8.9); eGFR For Non-African Americans > 60 (> 60)
[2018-02-14 22:32] LABS: Bilirubin,Urine Negative (Negative); Blood,Urine Large (Negative); Clarity,Urine Cloudy (Clear); Color,Urine Yellow (Yellow); Glucose,Urine (UA) Normal (Normal); Ketones,Urine Negative (Negative); Leukocyte Esterase,Urine Large (Negative); Nitrite,Urine Negative (Negative); Protein,Urine 30 mg/dL (Neg-Trace); Specific Gravity,Urine 1.013 (1.010-1.025); Urobilinogen,Urine Normal (Normal)
[2018-02-14 22:33] LABS: Bacteria,Urine Moderate per hpf (None-Few); Hyaline Casts,Urine None Seen per lpf (None-Few); RBC,Urine 15-30 per hpf (0-3); Squamous Epithelial Cell,Urine Many per lpf (None-Few); WBC,Urine TNTC per hpf (0-3)
[2018-02-15] MEDS ORDERED: Acetaminophen 325 MG TABLET PO PRN (00:19)
--- NOTE | 2018-02-15 00:26 | OB/GYN History & Physical ---
Date of Encounter: 02/15/18 Time of Encounter: 00:25 Assessment and Plan (1) Acute endometritis Current visit: Yes Status: Acute Pt seen and examined resting comfortably at bedside Vital signs currently stable - pt currently afebrile (recently took 2 Tylenol at home) WBC trending down from 17 to 13.4 currently U/S indicated normal flow to bilateral ovaries Pt began on Cefoxitin (penicillin allergy) due to suspected endometritis Tylenol PRN for fever/pain Will continue to monitor History of Present Illness Chief complaint: LLQ pain HPI: Ms. Hardin is a 37 year old female who presents 72 hours s/p vaginal delivery with fever reported at home and LLQ pain. Pt states she was awoken from her sleep 24 hrs ago with sharp LLQ pain that came and went. She was able to fall back asleep, but noted that every time she woke up throughout the day, she felt a dull ache in her left lower abdomen. Spent most of the day sleeping, and notes she did not feel pain as strongly as she did the night previously throughout the day. Temperature measured at home was 101.7F which patient managed with Tylenol. Associated with mild nausea, which she said she felt in the days after her previous 2 pregnancies, and decreased appetite. States she has had a regular bowel movement and passed flatus post-, and still has mild lochia s/p vaginal delivery. Currently denies headache, blurry vision, lightheadedness, dizziness, SOB, chest pain, any episodes of vomiting, diarrhea, dysuria. Pt delivered 72 hours ago with no complications, no lacerations. Denies history of complications after previous deliveries. Past Med Surg Social Fam HX - Past Medical History Attestation: Yes The following information was validated with the patient. Source: patient Medical history: no medical history Additional medical history: day 3, Currently Psychiatric history: no psych history - Past Surgical History Additional surgical history: wisdom teeth removal - Social History Smoking Status: Never smoker Smokeless Tobacco Status: No Alcohol use: none Drug use: none - Family History Mother Living Status: Hx Family Cancer: Yes (bladder) Obstetrical History - Pregnancies : 3 Para: 3 Term: 3 : 0 Ab's: 0 Livin Medications and Allergies Acetaminophen [Tylenol] 650 mg PO Q6HR PRN tablet 02/12/18 [Rx] Docusate [Colace] 100 mg PO BID capsule 02/12/18 [Rx] 3 Allergy/AdvReac Type Severity Reaction Status Date / Time clarithromycin [From Biaxin] Allergy Diarrhea Verified 02/11/18 12:22 clindamycin Allergy Anaphylaxis Verified 02/11/18 12:22 Cyclobenzaprine Allergy Hives Verified 02/11/18 12:22 [From Flexeril] Penicillins [PCN] Allergy Hives Verified 02/11/18 12:22 fexofenadine [From Ginette-D] AdvReac Shakiness Verified 02/11/18 12:22 ibuprofen AdvReac Nausea Verified 02/11/18 12:22 pseudoephedrine AdvReac Shakiness Verified 02/11/18 12:22 [From Ginette-D] Review of System OB All systems PM: reviewed and no additional remarkable complaints except as stated - Constitutional Constitutional ROS IM: as per HPI, fever(s) - Cardiovascular Cardiovascular: no chest pain - Respiratory Respiratory: no cough, no dyspnea - Gastrointestinal Gastrointestinal: nausea, no change in bowel habits, no change in stool character, no coffee ground emesis, no constipation, no diarrhea, no loose stools, no vomiting - Genitourinary Genitourinary: no difficulty urinating, no dysuria, no flank pain, no urinary frequency, no urinary urgency Exam - Vital Signs Vital signs: Initial Vital Signs Temp Pulse Resp BP Pulse Ox 99.2 F 86 16 140/71 98 02/14/18 20:26 02/14/18 20:26 02/14/18 20:26 02/14/18 20:26 02/14/18 20:26 - Constitutional Constitutional: well developed, well nourished, no acute distress, average body habitus (Pleasant appearing, in no acute distress, resting comfortably in bed) - HEENT HEENT: EOMI, Normocephaly - Neck Neck exam: full ROM - Lungs Respiratory exam: CTAB - Cardiovascular Cardiovascular exam: RRR, +S1, +S2 - Abdomen Abdomen: Present: bowel sounds normal Abdomen detail: left lower quadrant: tenderness (LLQ tender to deep palpation; no rebound, guarding, or abdominal distension) - Extremities Extremities exam: full ROM, normal inspection - Comments Comments: I examined this patient and my medical decision-making was reviewed with the Resident Physician. I agree with the documented findings, disposition and treatment plan as described except to the extent set forth below. FF @ U/2. Patient is only tender on left side on exam. PADMINI Adame Results Result Diagrams: 02/14/18 21:16 02/14/18 21:16 Abnormal lab results WBC 13.4 K/mcL (4.3-11.1) H 02/14/18 21:16 RBC 3.74 M/mcL (3.82-4.97) L 02/14/18 21:16 Hct 35.0 % (35.3-44.9) L 02/14/18 21:16 Neutrophils # 9.2 K/mcL (1.6-8.9) H 02/14/18 21:16 Monocytes # 1.5 K/mcL (0.0-1.3) H 02/14/18 21:16 Sodium 134 mEq/L (136-145) L 02/14/18 21:16 Carbon Dioxide 22 mEq/L (23-29) L 02/14/18 21:16 Creatinine 0.56 mg/dL (0.60-1.20) L 02/14/18 21:16 Calculated Osmolality 276 (280-300) L 02/14/18 21:16 Serum Total Protein 5.9 g/dL (6.4-8.9) L 02/14/18 21:16 Albumin 3.1 g/dL (3.5-5.7) L 02/14/18 21:16 Urine Clarity Cloudy (Clear) A 02/14/18 22:22 Urine Protein 30 mg/dL (Neg-Trace) H 02/14/18 22:22 Urine Blood Large (Negative) H 02/14/18 22:22 Ur Leukocyte Esterase Large (Negative) H 02/14/18 22:22 Urine Microscopic RBC 15-30 per hpf (0-3) H 02/14/18 22:22 Urine Microscopic WBC TNTC per hpf (0-3) H 02/14/18 22:22 Ur Squamous Epith Cells Many per lpf (None-Few) H 02/14/18 22:22 Urine Bacteria Moderate per hpf (None-Few) H 02/14/18 22:22 Ur Culture Indicated? NO. (NO) A 02/14/18 22:22 All other labs normal. - VTE Reasons for not Prescribing Prophylaxis: Treatment not Indicated - Low risk for VTE
[2018-02-15] MEDS ORDERED: cefOXitin 2,000 MG in Water for inj. (sterile) 20 ML 20 ML IVP SCH (06:00)
[2018-02-15 07:33] LABS: Basophils # 0.1 K/mcL (0.0-0.2); Basophils % 0.5 %; Eosinophils # 0.3 K/mcL (0.0-0.6); Eosinophils % 2.6 %; Hematocrit 35.9 % (35.3-44.9); Lymphocytes # 1.7 K/mcL (0.6-4.6); Lymphocytes % 14.8 %; Mean Corpuscular HGB Conc 33.4 g/dL (31.6-35.5); Mean Corpuscular Volume 92.8 fL (83.0-100.0); Mean Platelet Volume 10.3 fL (9.4-12.4); Monocytes # 1.2 K/mcL (0.0-1.3); Monocytes % 10.3 %; Neutrophils # 8.2 K/mcL (1.6-8.9); Platelet Count 185 K/mcL (140-400); Red Blood Count 3.87 M/mcL (3.82-4.97); Red Cell Distribution Width 12.9 % (11.5-14.5); Segmented Neutrophils % 70.8 %
[2018-02-15 07:49] VITALS: BP 117/61
--- NOTE | 2018-02-15 08:55 | Discharge Summary ---
Date of Encounter: 02/15/18 Time of Encounter: 08:55 - Discharge Diagnosis (1) Acute endometritis Priority: Primary Status: Acute Comments: Pt doing better, still with pain but it is tolerable. Appropriate lochia. No fevers and no n/v. - Discharge Medications Prescriptions: metroNIDAZOLE [Flagyl] 500 mg PO BID 7 Days #14 tablet Home Medications: Acetaminophen [Tylenol] 650 mg PO Q6HR PRN tablet 02/12/18 [Rx] Docusate [Colace] 100 mg PO BID capsule 02/12/18 [Rx] metroNIDAZOLE [Flagyl] 500 mg PO BID 7 Days #14 tablet 02/15/18 [Rx] Allergies/Adverse Reactions: 3 Allergy/AdvReac Type Severity Reaction Status Date / Time clarithromycin [From Biaxin] Allergy Diarrhea Verified 02/11/18 12:22 clindamycin Allergy Anaphylaxis Verified 02/11/18 12:22 Cyclobenzaprine Allergy Hives Verified 02/11/18 12:22 [From Flexeril] Penicillins [PCN] Allergy Hives Verified 02/11/18 12:22 fexofenadine [From Ginette-D] AdvReac Shakiness Verified 02/11/18 12:22 ibuprofen AdvReac Nausea Verified 02/11/18 12:22 pseudoephedrine AdvReac Shakiness Verified 02/11/18 12:22 [From Ginette-D] Data Procedures and tests throughout hospitalization: Laboratory Tests 02/15/18 07:11 WBC 11.6 H RBC 3.87 Hgb 12.0 Hct 35.9 MCV 92.8 MCH 31.0 MCHC 33.4 RDW 12.9 Plt Count 185 MPV 10.3 Immature Gran % 1.0 Seg Neutrophils % 70.8 Lymphocytes % 14.8 Monocytes % 10.3 Eosinophils % 2.6 Basophils % 0.5 Neutrophils # 8.2 Lymphocytes # 1.7 Monocytes # 1.2 Eosinophils # 0.3 Basophils # 0.1 Labs on day of discharge: Labs from last 24 hours 02/15/18 07:11 WBC 11.6 H RBC 3.87 Hgb 12.0 Hct 35.9 MCV 92.8 MCH 31.0 MCHC 33.4 RDW 12.9 Plt Count 185 MPV 10.3 Immature Gran % 1.0 Seg Neutrophils % 70.8 Lymphocytes % 14.8 Monocytes % 10.3 Eosinophils % 2.6 Basophils % 0.5 Neutrophils # 8.2 Lymphocytes # 1.7 Monocytes # 1.2 Eosinophils # 0.3 Basophils # 0.1 - Impressions Pt doing well, still with pain in LLQ but has taken only Tylenol and is using ice pack. Reg diet without n/v. Appropriate lochia. No more fevers or chills. Voiding without difficulty. Date of admission: 02/14/18 23:27 Primary care physician: Steffi Kenyon CNP - Patient Status Disposition: Home, Self-Care Condition: Good Functional capacity at discharge: independent ambulation Overall status at discharge: patient is progressing back to baseline - Discharge Instructions - Diet and Activity Activity: increase activity as tolerated Diet: advance to your usual diet Hospital Course POT OPERATOR Time Attestation: Total time spent providing and/or coordinating discharge services: Exam - Constitutional Vitals: Temp Pulse Resp BP Pulse Ox 97.4 F L 70 20 117/61 98 02/15/18 07:48 02/15/18 07:48 02/15/18 07:48 02/15/18 07:48 02/15/18 07:48 General appearance IM: A&O X 3 - Respiratory Respiratory exam: Present: CTAB - Cardiovascular Cardiovascular exam IM: Present: RRR - GI/Abdominal GI/Abdominal exam IM: normal bowel sounds, tenderness (in llq), no peritoneal signs - Uterus Position: 2 Fingers Below Umbilicus - Extremities Exam Extremities exam IM: Present: full ROM - Neurological Exam Neurological exam: oriented X3 - VTE Reasons for not Prescribing Prophylaxis: Treatment not Indicated - Low risk for VTE
[2018-02-15] MEDS ORDERED: metroNIDAZOLE 500 MG TABLET PO SCH (09:30)
== END 2018-02-15 10:15 | disposition home or self-care (01) ==
LOC: EMEROOARM 20:16 → 1NENUOBS 20:16
PROVIDERS: ADMIT Obstetrics & Gynecology; ATTEND Obstetrics & Gynecology

== ENCOUNTER → 2020-12-09 21:16 | Observation (INO) ==
[2020-12-09 20:29] LABS: Bacteria,Urine Few per hpf (None-Few); Bilirubin,Urine Negative (Negative); Blood,Urine Negative (Negative); Clarity,Urine Turbid (Clear); Color,Urine Light-Yellow (Yellow); Glucose,Urine (UA) Normal (Normal); Ketones,Urine Negative (Negative); Leukocyte Esterase,Urine Moderate (Negative); Nitrite,Urine Negative (Negative); PH,Urine 6.5 pH Units (5.0-8.0); Protein,Urine Negative (Neg-Trace); Specific Gravity,Urine 1.008 (1.010-1.025); Squamous Epithelial Cell,Urine Few per hpf (None-Few); Urobilinogen,Urine Normal (Normal)
== END | disposition home or self-care (01) ==
LOC: 1NENULAB
PROVIDERS: ADMIT Student in an Organized Health Care Education/Training Program; ATTEND Student in an Organized Health Care Education/Training Program

== ENCOUNTER 2021-01-12 16:10 | Inpatient (IN) ==
[2021-01-12 11:40] LABS: Creatinine,Urine 64 mg/dL; Protein/Creatinine Ratio,Urine 0.13 mg/mg (0.00-0.20)
[2021-01-12 11:41] LABS: Basophils % 0.3 %; Eosinophils # 0.1 K/mcL (0.0-0.6); Eosinophils % 0.9 %; Hemoglobin 10.8 g/dL (11.5-15.4); Immature Granulocytes % 1.1 % (0-4); Lymphocytes # 2.1 K/mcL (0.6-4.6); Lymphocytes % 22.2 %; Mean Corpuscular HGB Conc 32.7 g/dL (31.6-35.5); Mean Corpuscular Volume 91.7 fL (83.0-100.0); Mean Platelet Volume 10.5 fL (9.4-12.4); Monocytes # 0.9 K/mcL (0.0-1.3); Monocytes % 9.5 %; Neutrophils # 6.1 K/mcL (1.6-8.9); Platelet Count 214 K/mcL (140-400); Red Cell Distribution Width 12.9 % (11.5-14.5); White Blood Count 9.3 K/mcL (4.3-11.1)
[2021-01-12 12:18] LABS: Alanine Aminotransferase 6 Units/L (7-52); Aspartate Amino Transferase 11 Units/L (13-39); BUN/Creatinine Ratio 11 (6-26); Blood Urea Nitrogen 5 mg/dL (6-20); Lactate Dehydrogenase 122 Units/L (140-271); Uric Acid 4.2 mg/dL (2.3-7.6); eGFR For African Americans > 60 (> 60); eGFR For Non-African Americans > 60 (> 60)
[~2021-01-12 16:10] MED LIST: EPHEDrine 50 MG/ML VIAL IVP PRN; Epidural Premix (fent/bupiv) 110 ML EP SCH
[2021-01-12] MEDS ORDERED: *HR* Nalbuphine 10 MG/ML AMPUL IV PRN (16:45)
[2021-01-12] MEDS ORDERED: Azithromycin 500 MG in 0.9 % Sodium Chloride 250 ML IVPB PRN (16:45)
[2021-01-12] MEDS ORDERED: Ondansetron 4 MG/2 ML VIAL IVP PRN (16:45)
[2021-01-12] MEDS ORDERED: Oxytocin 20 units/ LR 1000 mL 20 UNIT/1,000 ML BAG IVC SCH (16:45)
[2021-01-12] MEDS ORDERED: Naloxone 0.4 MG/ML INJ IVP PRN (16:45)
[2021-01-12] MEDS ORDERED: Metoclopramide 10 MG/2 ML VIAL IVP PRN (16:45)
[2021-01-12] MEDS ORDERED: Famotidine 20 MG/2 ML VIAL IVP PRN (16:45)
[2021-01-12 17:08] LABS: Amphetamine Screen,Urine Negative ng/mL (Cutoff=1000); Barbiturate Screen,Urine Negative ng/mL (Cutoff=200); Benzodiazepines Screen,Urine Negative ng/mL (Cutoff=200); Cannabinoid Screen,Urine Negative ng/mL (Cutoff = 50); Cocaine Screen,Urine Negative ng/mL (Cutoff= 300); Opiate Screen,Urine Negative ng/mL (Cutoff=300); Phencyclidine Screen,Urine Negative ng/mL (Cutoff=25)
[2021-01-12] MEDS: Ringers Solution, Lactated 1,000 ML IVC SCH (17:46)
[2021-01-12 18:46] LABS: Influenza A PCR Negative (Negative); Influenza B PCR Negative (Negative); Resp. Syncytial Virus PCR Negative (Negative)
[2021-01-12 18:53] LABS: SARS-CoV-2 by PCR (In House) Negative (Negative)
[2021-01-12] MEDS ORDERED: Ropivacaine/PF 0.2% 20 ML VIAL ONE (21:08)
[2021-01-12] MEDS ORDERED: *HR* FentaNYL (PF) 100 MCG/2 ML VIAL ONE (21:08)
[2021-01-12] MEDS ORDERED: Lidocaine/EPI 1:200k 2% PF 20 ML VIAL ONE (21:08)
[2021-01-13] MEDS ORDERED: Measles/Mumps/Rubella Vacc 0.5 ML VIAL SQ PRN (01:00)
[2021-01-13] MEDS ORDERED: Ibuprofen 600 MG TABLET PO PRN (01:00)
[2021-01-13 06:13] LABS: Basophils % 0.2 %; Eosinophils # 0.1 K/mcL (0.0-0.6); Eosinophils % 0.6 %; Hematocrit 32.7 % (35.3-44.9); Hemoglobin 10.8 g/dL (11.5-15.4); Immature Granulocytes % 0.7 % (0-4); Lymphocytes # 2.1 K/mcL (0.6-4.6); Lymphocytes % 13.7 %; Mean Corpuscular Hemoglobin 30.5 pg (28.0-33.3); Mean Corpuscular Volume 92.4 fL (83.0-100.0); Mean Platelet Volume 10.7 fL (9.4-12.4); Monocytes # 1.5 K/mcL (0.0-1.3); Monocytes % 9.6 %; Neutrophils # 11.5 K/mcL (1.6-8.9); Platelet Count 198 K/mcL (140-400); Red Blood Count 3.54 M/mcL (3.82-4.97); Red Cell Distribution Width 12.9 % (11.5-14.5); Segmented Neutrophils % 75.2 %
[2021-01-13 06:16] LABS: White Blood Count 15.3 K/mcL (4.3-11.1)
[2021-01-13] MEDS: Prenatal Vit/FA 1 EACH TABLET PO SCH (07:43)
[2021-01-13] MEDS: Acetaminophen 325 MG TABLET PO PRN ×2 (14:41→22:11)
[2021-01-13] MEDS: Ringers Solution, Lactated 1,000 ML IVC SCH (19:21)
[2021-01-13] MEDS: Oxytocin 20 units/ LR 1000 mL 20 UNIT/1,000 ML BAG IVC SCH (19:22)
[2021-01-14] MEDS: Acetaminophen 325 MG TABLET PO PRN (06:21)
[2021-01-14 07:58] VITALS: BP 115/73; PULSE 82; TEMP 97.9; O2SAT 98
[2021-01-14] MEDS: Prenatal Vit/FA 1 EACH TABLET PO SCH (08:18)
== END 2021-01-14 13:00 | disposition home or self-care (01) | DRG 805 ==
LOC: 1NENULAB → 1NENUOBS 01-13 01:16
PROVIDERS: ADMIT Obstetrics & Gynecology; ATTEND Obstetrics & Gynecology